=== PATIENT | female | born 1985 | race Two or more races ===

== ENCOUNTER 2025-05-06 08:29 | Outpatient (CLI) | payer OTHER | END 2025-05-06 08:30 | disposition home or self-care (01) | LOC: PRENATAL 08:29 | PROVIDERS: ATTEND Obstetrics & Gynecology Maternal & Fetal Medicine | DX: O36.80X0 Pregnancy with inconclusive fetal viability, not applicable or unspecified (principal); Z36.82 Encounter for antenatal screening for nuchal translucency; O28.3 Abnormal ultrasonic finding on antenatal screening of mother; O09.519 Supervision of elderly primigravida, unspecified trimester; O34.10 Maternal care for benign tumor of corpus uteri, unspecified trimester; Z3A.13 13 weeks gestation of pregnancy ==

== ENCOUNTER → 2025-06-30 07:34 | Outpatient (CLI) | payer OTHER | END | disposition home or self-care (01) | LOC: PRENATAL 07:34 | PROVIDERS: ATTEND Obstetrics & Gynecology Maternal & Fetal Medicine | DX: O44.02 Complete placenta previa NOS or without hemorrhage, second trimester (principal); O28.3 Abnormal ultrasonic finding on antenatal screening of mother; O09.512 Supervision of elderly primigravida, second trimester; O34.12 Maternal care for benign tumor of corpus uteri, second trimester; Z3A.21 21 weeks gestation of pregnancy ==